=== PATIENT | female | born 1975 | race Caucasian/White ===

== ENCOUNTER 2022-09-27 18:31 | Emergency (ER) | payer BC, SELFPAY ==
[2022-09-27 18:38] VITALS: BP 110/91; PULSE 101; RESP 20; TEMP 36.8; O2SAT 98; BMI 28.3
--- NOTE | 2022-09-27 19:07 | ED_ITS ---
HPI - Allergic Reaction General Chief complaint: Allergic Reaction Stated complaint: Allergic Reaction Time Seen by Provider: 09/27/22 18:37 History of Present Illness HPI narrative: This 47-year-old female comes in with report of allergic reaction. She states that she has an allergy to chicken. She was exposed to some chicken at around 5:00 p.m. and felt tightness in her breathing. She states that she did not have any swelling or signs of angioedema but does carry an EpiPen with her as these kinds of symptoms have happened in the past. She did administer an EpiPen and went to urgent care where she received IV Solu-Medrol and Benadryl. She was discharged and felt symptoms again as she was driving and gave herself another dose of an EpiPen and presents here for further evaluation. She arrives here with normal vital signs and shows no sign of rash or angioedema. Related Data Home Medications Medication Instructions Recorded Confirmed No Known Home Medications 09/27/22 09/27/22 Allergies Allergy/AdvReac Type Severity Reaction Status Date / Time bupivacaine [From Marcaine] Allergy Intermediate Verified 09/27/22 18:46 lidocaine Allergy Intermediate Verified 09/27/22 18:46 [email or web address] Allergy Severe Anaphylaxis Uncoded 09/27/22 18:46 chicken Allergy Severe Anaphylaxis Uncoded 09/27/22 18:46 [email or web address] Allergy Severe Anaphylaxis Uncoded 09/27/22 18:46 Review of Systems Status of ROS Reports: 10 or more systems reviewed and unremarkable except as noted in History and below Narrative Constitutional: No fevers, no weight gain or loss. Eyes: No discharge. No vision changes. HENT: No congestion, no sore throat, no ear pain. Cardiovascular: No chest pain, no palpitations. Respiratory: No wheezes, no cough. No current shortness of breath. She states that she did feel short of breath earlier and that is why she gave herself a shot of epinephrine. Gastrointestinal: No abdominal pain, no vomiting, no diarrhea. Genitourinary: No dysuria, no hematuria. Musculoskeletal: Normal range of motion. Skin: No rashes, no pruritis. Neurological: No dizziness, weakness, sensory change, speech change. Endo/Heme/Allergies: No bruising or bleeding. No polydipsia. Pysch: no suicidality, no anxiety, no insomnia. All other systems reviewed and are negative. Exam Narrative: Exam Narrative: Constitutional: Well-developed, well-nourished, no acute distress. HEENT: Normocephalic, atraumatic. Normal appearing oropharynx. Neck: Normal range of motion. Nontender. Supple. Heart: Regular. No murmurs. Normal rate. Intact distal pulses. Lungs: Clear to auscultation. No chest discomfort. No wheezes, rhonchi, or rales. No use of accessory muscles for breathing. Abdomen: Normal bowel sounds. Nontender. No rebound tenderness. Genitalia: Deferred. Back: No midline tenderness. Normal range of motion. Extremities: Normal range of motion. No injury. Skin: Intact. No rash. Warm. No erythema or pallor. No sign of angioedema. Neurologic: No altered sensation. No weakness. Alert and oriented. Psychiatric: No suicidality. No anxiety or depression. No insomnia. Nursing notes and vitals signs are reviewed. Const: Vital Signs, click to edit/add: Vital Signs - 24 hr 09/27/22 18:38 Temperature 98.2 F Pulse Rate [Right Pulse Oximeter] 101 H Respiratory Rate 20 Blood Pressure [Ri ght Upper Arm] 110/91 H Pulse Oximetry 98 Oxygen Delivery Me thod Room Air Course Vital Signs Vital signs: Initial Vital Signs Temperature 98.2 F 09/27/22 18:38 Temperature Source Temporal Artery Scan 09/27/22 18:38 Pulse Rate 101 H 09/27/22 18:38 Respiratory Rate 20 09/27/22 18:38 Blood Pressure 110/91 H 09/27/22 18:38 Blood Pressure Mean 97 09/27/22 18:38 Blood Pressure Position Sitting 09/27/22 18:38 Pulse Oximetry 98 09/27/22 18:38 Oxygen Delivery Method 09/27/22 18:38 Vital Signs Temperature 98.2 F 09/27/22 18:38 Pulse Rate 101 H 09/27/22 18:38 Respiratory Rate 20 09/27/22 18:38 Blood Pressure 110/91 H 09/27/22 18:38 Pulse Oximetry 98 09/27/22 18:38 Oxygen Delivery Method 09/27/22 18:38 Temperature 98.2 F 09/27/22 18:38 Pulse Rate 101 H 09/27/22 18:38 Respiratory Rate 20 09/27/22 18:38 Blood Pressure 110/91 H 09/27/22 18:38 Pulse Oximetry 98 09/27/22 18:38 Oxygen Delivery Method 09/27/22 18:38 MDM - Allergic Reaction MDM Narrative Medical decision making narrative: This patient was seen in an urgent care clinic because of a report of an allergic reaction to chicken. She gave herself an epinephrine shot an and was discharged after receiving Benadryl and Solu-Medrol. She returns here because she felt tight in her breathing again and gave herself another injection of epinephrine. Currently she is not reporting any symptoms except she feels kind of jittery likely due to the epinephrine doses. She arrives with normal exam and no sign of erythema or angioedema. She does not have any pruritus. Her symptoms started 2 hours prior to arrival and has been treated with appropriate medicines for what ever allergy reaction she may have head. I explained that it is reasonable to watch her for another hour so to gain further reassurance that she is not reacting to anything. I did not see her when she was having symptoms so my perspective may not be complete but my personal opinion and does question whether in fact this was an anaphylactic reaction. I did advise her to follow up with an doctor of pharmacy. Also I explained that a tryptase level can be helpful to understand if she is having an anaphylactic reaction. This lab would need to be drawn within 90 minutes of and event. Discharge Plan Discharge Clinical Impression: Allergic reaction Patient Disposition: Home, Self-Care Condition: Stable Additional Instructions: Continue current plans. Follow up with MD or return if worsening. Prescriptions: No Action No Known Home Medications Stand Alone Forms: [facility] Info Instructions
== END 2022-09-27 20:23 | disposition home or self-care (01) ==
PROVIDERS: Emergency Provider Emergency Medicine Emergency Medical Services
DX: T78.1XXA Other adverse food reactions, not elsewhere classified, initial encounter (principal)
CPT/HCPCS: 99283; 99284